=== PATIENT | female | born 1960 | race Caucasian/White ===

== ENCOUNTER 2018-01-16 08:07 | Day surgery (SDC) | payer OTHER ==
[2018-01-16] MEDS ORDERED: fentaNYL 0.05 MG/ML VIAL ONE (10:14)
[2018-01-16] MEDS ORDERED: MIDAZOLAM 2 MG/2 ML VIAL ONE (10:15)
== END 2018-01-16 11:37 | disposition home or self-care (01) ==
LOC: MDS 08:07 → MMU 08:11 → MDS 11:37
PROVIDERS: ATTEND Internal Medicine Gastroenterology
DX: K22.10 Ulcer of esophagus without bleeding (principal); K21.0 Gastro-esophageal reflux disease with esophagitis; K44.9 Diaphragmatic hernia without obstruction or gangrene; K76.0 Fatty (change of) liver, not elsewhere classified; E66.01 Morbid (severe) obesity due to excess calories; E11.9 Type 2 diabetes mellitus without complications; E78.5 Hyperlipidemia, unspecified; Z98.890 Other specified postprocedural states; Z90.49 Acquired absence of other specified parts of digestive tract; Z79.899 Other long term (current) drug therapy
CPT/HCPCS: 36415; 43239; 82948; 86677; J2250; J7030; J3010